=== PATIENT | female | born 1990 | race Hispanic/Latino ===

== ENCOUNTER 2024-07-14 06:45 | Day surgery (SDC) | payer SELFPAY ==
[2024-07-13 11:21] VITALS: BMI 25.3
[2024-07-14] MEDS ORDERED: PROPOFOL 20 ML ONE (09:33)
[2024-07-14 09:52] LABS: #Basophils 0.13 10x3/uL (0.0-0.2); %Basophils 2.2 % (0.0-1.0); %Eosinophils 6.5 % (0.0-10.0); %Lymphocytes 32.9 % (21.0-51.0); %Neutrophils 52.2 % (42.0-75.0); Hematocrit 34.7 % (36.0-47.0); Hemoglobin 10.7 g/dL (12.0-16.0); Mean Corpuscular HGB CONC 30.8 g/dL (32.0-36.0); Mean Corpuscular Volume 97.2 fL (78.0-98.0); Mean Platelet Volume 9.3 fL (7.4-10.4); Platelet Count 329 10x3/uL (130-400); RBC Distribution Width 16.3 % (11.5-14.5); Red Blood Cell (RBC) Count 3.57 mill/uL (4.20-5.40)
[2024-07-14 10:05] LABS: BHCG - Serum Negative (NEGATIVE); Pregs Control Background? CLEAR/WHITE (CLR/WHITE); Pregs Control Bar Appear? YES (CONTROL BAR)
[2024-07-14 10:06] LABS: Anion Gap 15 mmol/L (10-20); BUN (Urea Nitrogen) 29 mg/dL (7.0-18.7); Calc. Creatinine Clearance 45 mL/min (70-130); Calcium 10.4 mg/dL (7.8-10.44); Carbon Dioxide 18 mmol/L (22-29); Chloride 114 mmol/L (98-107); Estimated GFR 36; Glucose 87 mg/dL (70-105); INR-International Normal Ratio 1.1; Potassium 4.7 mmol/L (3.5-5.1); Prothrombin Time 13.8 sec (12.0-14.7); Sodium 142 mmol/L (136-145)
[2024-07-14 10:07] LABS: PTT 36.9 sec (22.9-36.1)
[2024-07-14] MEDS ORDERED: Iopamidol 30 ML ONE (10:29)
[2024-07-14] MEDS ORDERED: Meropenem 2 GM in Sodium Chloride 0.9% 100 ML IVPB SCH (10:30)
[2024-07-14] MEDS ORDERED: fentaNYL PF 100 MCG/2 ML SYRINGE ONE (10:31)
[2024-07-14] MEDS ORDERED: Midazolam HCl 2 mg/2 ml Vial ONE (10:32)
[2024-07-14] MEDS ORDERED: Lidocaine 1% PF 5 ML VIAL ONE (11:02)
[2024-07-14] MEDS ORDERED: Rocuronium Bromide 10 MG/ML (10ML VIAL) ONE (11:02)
[2024-07-14] MEDS ORDERED: Ondansetron PF 4 MG/2 ML Vial ONE (11:07)
[2024-07-14] MEDS ORDERED: Dexamethasone 4 mg/ml Vial ONE (11:07)
[2024-07-14] MEDS ORDERED: SUGAMMADEX SODIUM 200 MG/2 ML VIAL ONE (11:09)
[2024-07-14] MEDS ORDERED: PHENYLEPHRINE-NS 100 MCG/ML 10 ML SYRINGE ONE (11:16)
== END 2024-07-14 15:28 | disposition home or self-care (01) ==
LOC: SDC 06:45
PROVIDERS: ATTEND Urology
PROC: 0TC78ZZ Extirpation of Matter from Left Ureter, Via Natural or Artificial Opening Endoscopic (ICD-10-PCS; principal; 2024-07-14)
PROC: 0T778DZ Dilation of Left Ureter with Intraluminal Device, Via Natural or Artificial Opening Endoscopic (ICD-10-PCS; principal; 2024-07-14)
DX: N20.2 Calculus of kidney with calculus of ureter (principal); Z91.018 Allergy to other foods; Z91.012 Allergy to eggs
CPT/HCPCS: 71045; 74018; 74420; 80048; 82365; 84703; 85025; 85610; 85730; 88300; C1747; C1769; C2617; J1100; J2183; J2250; J2405; J2704; Q9967

== ENCOUNTER 2024-07-26 09:30 | Outpatient (CLI) | payer OTHER | END 2024-07-26 09:31 | disposition home or self-care (01) | LOC: RAD 09:30 | PROVIDERS: ATTEND Urology | DX: N20.2 Calculus of kidney with calculus of ureter (principal); Z96.0 Presence of urogenital implants | CPT/HCPCS: 74018 ==

== ENCOUNTER 2024-07-28 14:55 | Outpatient (CLI) | payer OTHER ==
[2024-07-28 17:07] LABS: %Basophils 1.3 % (0.0-1.0); %Eosinophils 8.6 % (0.0-10.0); %Lymphocytes 30.3 % (21.0-51.0); %Neutrophils 53.4 % (42.0-75.0); Hematocrit 32.4 % (36.0-47.0); Hemoglobin 10.1 g/dL (12.0-16.0); Mean Corpuscular HGB CONC 31.2 g/dL (32.0-36.0); Mean Corpuscular Hemoglobin 30.5 pg (27.0-31.0); Mean Corpuscular Volume 97.9 fL (78.0-98.0); Mean Platelet Volume 9.7 fL (7.4-10.4); Platelet Count 303 10x3/uL (130-400); RBC Distribution Width 15.7 % (11.5-14.5); Red Blood Cell (RBC) Count 3.31 mill/uL (4.20-5.40)
[2024-07-28 17:15] LABS: BHCG - Serum Negative (NEGATIVE); Pregs Control Background? CLEAR/WHITE (CLR/WHITE); Pregs Control Bar Appear? YES (CONTROL BAR)
[2024-07-28 17:16] LABS: Bilirubin Negative (Negative); Blood, Urine 1+ (Negative); Clarity Clear (Clear); Glucose, Urine (Dipstick) Normal (Negative); Ketone, Urine Negative (Negative); Leukocyte 500 Leu/uL (Negative); Nitrite Negative (Negative); Protein, Urine (Dipstick) 30 mg/dL (Neg-Trace); Specific Gravity, Urine 1.003 (1.002-1.036); Squamous Epithelial None Seen HPF (0-3); Urobilinogen Normal mg/dL (Less than 2); WBC/HPF Greater than 50 HPF (0-3); pH, Urine 6.5 (5.0-9.0)
[2024-07-28 17:17] LABS: Bacteria/HPF 1+ HPF (None Seen)
[2024-07-28 17:22] LABS: Anion Gap 10 mmol/L (10-20); BUN (Urea Nitrogen) 34 mg/dL (7.0-18.7); Calc. Creatinine Clearance 0 mL/min (70-130); Calcium 9.1 mg/dL (7.8-10.44); Carbon Dioxide 25 mmol/L (22-29); Chloride 109 mmol/L (98-107); Estimated GFR 39; Glucose 86 mg/dL (70-105); PTT 35.3 sec (22.9-36.1); Potassium 4.1 mmol/L (3.5-5.1); Prothrombin Time 13.5 sec (12.0-14.7); Sodium 140 mmol/L (136-145)
== END 2024-07-28 14:56 | disposition home or self-care (01) ==
LOC: LABBT 14:55
PROVIDERS: ATTEND Urology
DX: Z01.818 Encounter for other preprocedural examination (principal); N13.2 Hydronephrosis with renal and ureteral calculous obstruction; N18.9 Chronic kidney disease, unspecified
CPT/HCPCS: 80048; 81001; 84703; 85025; 85610; 85730; 87086; 93005; 93010

== ENCOUNTER 2024-08-11 07:51 | Day surgery (SDC) | payer SELFPAY ==
[2024-07-28 16:05] VITALS: BMI 11.7
[2024-08-11] MEDS ORDERED: fentaNYL PF 100 MCG/2 ML SYRINGE ONE (09:04)
[2024-08-11] MEDS ORDERED: Rocuronium Bromide 10 MG/ML (10ML VIAL) ONE (09:04)
[2024-08-11] MEDS ORDERED: PROPOFOL 20 ML ONE (09:04)
[2024-08-11] MEDS ORDERED: Midazolam HCl 2 mg/2 ml Vial ONE (09:08)
[2024-08-11] MEDS ORDERED: Meropenem 1 GM in Sodium Chloride 0.9% 100 ML IVPB SCH (09:15)
[2024-08-11] MEDS ORDERED: Dexamethasone 20 MG/5 ML VIAL ONE (09:36)
[2024-08-11] MEDS ORDERED: Lidocaine 1% PF 5 ML VIAL ONE (09:36)
[2024-08-11] MEDS ORDERED: Ondansetron PF 4 MG/2 ML Vial ONE (09:36)
[2024-08-11] MEDS ORDERED: Ketamine In 0.9 % NaCl 50 MG/5 ML SYRINGE ONE (09:44)
[2024-08-11] MEDS ORDERED: SUGAMMADEX SODIUM 200 MG/2 ML VIAL ONE (11:16)
[2024-08-11] MEDS ORDERED: Iopamidol 15 ML ONE (11:36)
[2024-08-11] MEDS ORDERED: Phenazopyridine HCl 100 MG TAB ONE (11:53)
[2024-08-11] MEDS ORDERED: Oxybutynin 5 MG TAB ONE (11:53)
[2024-08-11] MEDS ORDERED: fentaNYL 50 mcg/mL 1 mL Vial ONE (12:08)
== END 2024-08-11 14:04 | disposition home or self-care (01) ==
LOC: SDC 07:51
PROVIDERS: ATTEND Urology
DX: N20.2 Calculus of kidney with calculus of ureter (principal); I12.9 Hypertensive chronic kidney disease with stage 1 through stage 4 chronic kidney disease, or unspecified chronic kidney disease; N18.9 Chronic kidney disease, unspecified; N13.39 Other hydronephrosis; Z87.442 Personal history of urinary calculi; Z91.012 Allergy to eggs; Z91.018 Allergy to other foods; Z98.890 Other specified postprocedural states; Z79.2 Long term (current) use of antibiotics; Z79.899 Other long term (current) drug therapy
CPT/HCPCS: 74018; 74420; C1747; C1769; C2617; J1100; J2185; J2250; J2405; J2704; J3010; J3490; Q9967

== ENCOUNTER 2024-08-24 14:29 | Outpatient (CLI) | payer OTHER | END 2024-08-24 14:30 | disposition home or self-care (01) | LOC: BICCT 14:29 | PROVIDERS: ATTEND Urology | DX: N13.39 Other hydronephrosis (principal); N20.0 Calculus of kidney; N32.89 Other specified disorders of bladder; Z98.890 Other specified postprocedural states | CPT/HCPCS: 74176 ==

== ENCOUNTER 2024-08-30 13:35 | Outpatient (CLI) | payer OTHER, MEDICAID ==
[2024-08-30 15:06] LABS: #Basophils 0.08 10x3/uL (0.0-0.2); %Basophils 1.2 % (0.0-1.0); %Monocytes 5.5 % (0.0-10.0); Hematocrit 34.4 % (36.0-47.0); Mean Corpuscular Hemoglobin 30.9 pg (27.0-31.0); Mean Corpuscular Volume 96.6 fL (78.0-98.0); Platelet Count 336 10x3/uL (130-400); RBC Distribution Width 15.5 % (11.5-14.5); Red Blood Cell (RBC) Count 3.56 mill/uL (4.20-5.40)
[2024-08-30 15:21] LABS: PTT 29.6 sec (22.9-36.1); Prothrombin Time 13.4 sec (12.0-14.7)
[2024-08-30 15:27] LABS: BHCG - Serum Negative (NEGATIVE); Pregs Control Background? CLEAR/WHITE (CLR/WHITE); Pregs Control Bar Appear? YES (CONTROL BAR)
[2024-08-30 15:33] LABS: Anion Gap 12 mmol/L (10-20); BUN (Urea Nitrogen) 30 mg/dL (7.0-18.7); Calc. Creatinine Clearance 0 mL/min (70-130); Calcium 9.4 mg/dL (7.8-10.44); Carbon Dioxide 24 mmol/L (22-29); Chloride 106 mmol/L (98-107); Estimated GFR 31; Glucose 84 mg/dL (70-105); Potassium 4.1 mmol/L (3.5-5.1); Sodium 138 mmol/L (136-145)
[2024-08-30 16:47] LABS: Bacteria/HPF 2+ HPF (None Seen); Bilirubin Negative (Negative); Blood, Urine 2+ (Negative); Clarity Clear (Clear); Glucose, Urine (Dipstick) Normal (Negative); Ketone, Urine Negative (Negative); Leukocyte 500 Leu/uL (Negative); Nitrite Negative (Negative); Protein, Urine (Dipstick) 10 mg/dL (Neg-Trace); RBC/HPF 21-50 HPF (0-3); Squamous Epithelial 0-3 HPF (0-3); Urobilinogen Normal mg/dL (Less than 2); WBC/HPF 21-50 HPF (0-3); Yeast-Budding Rare HPF (None Seen); Yeast-Hyphae Rare HPF (None Seen)
[2024-08-30 16:53] LABS: Specific Gravity, Urine 1.004 (1.002-1.036)
== END 2024-08-30 13:36 | disposition home or self-care (01) ==
LOC: LABBT 13:35
PROVIDERS: ATTEND Urology
DX: Z01.812 Encounter for preprocedural laboratory examination (principal); N20.2 Calculus of kidney with calculus of ureter; N13.39 Other hydronephrosis; N18.9 Chronic kidney disease, unspecified
CPT/HCPCS: 80048; 81001; 84703; 85025; 85610; 85730; 87077; 87086; 87186

== ENCOUNTER 2024-09-13 07:03 | Day surgery (SDC) | payer OTHER ==
[2024-08-30 13:55] VITALS: BMI 12.2
[2024-09-13] MEDS ORDERED: cefTRIAXone (ROCEPHIN) 2 GM VIAL ONE (09:08)
[2024-09-13] MEDS ORDERED: Sodium Chloride 0.9% 100 ML ONE (09:08)
[2024-09-13] MEDS ORDERED: Iopamidol 15 ML ONE (10:15)
[2024-09-13] MEDS ORDERED: PROPOFOL 20 ML ONE (10:20)
[2024-09-13] MEDS ORDERED: Lidocaine 2% PF 5 ML VIAL ONE (10:20)
[2024-09-13] MEDS ORDERED: fentaNYL PF 100 MCG/2 ML SYRINGE ONE (10:24)
[2024-09-13] MEDS ORDERED: Dexamethasone 4 mg/ml Vial ONE (10:49)
[2024-09-13] MEDS ORDERED: Ondansetron PF 4 MG/2 ML Vial ONE (10:49)
[2024-09-13] MEDS ORDERED: ePHEDrine Sulfate 50 MG/10 ML VIAL ONE (10:55)
[2024-09-13] MEDS ORDERED: Calcium Chloride 1 GM/10 ML Abboject SYRINGE ONE (11:25)
[2024-09-13] MEDS ORDERED: PHENYLEPHRINE-NS 100 MCG/ML 10 ML SYRINGE ONE (11:26)
[2024-09-13] MEDS ORDERED: Phenazopyridine HCl 100 MG TAB ONE (12:20)
[2024-09-13] MEDS ORDERED: Oxybutynin 5 MG TAB ONE (12:20)
[2024-09-13] MEDS ORDERED: fentaNYL 50 mcg/mL 1 mL Vial ONE (12:27)
== END 2024-09-13 15:03 | disposition home or self-care (01) ==
LOC: SDC 07:03
PROVIDERS: ATTEND Urology
PROC: 0TF78ZZ Fragmentation in Left Ureter, Via Natural or Artificial Opening Endoscopic (ICD-10-PCS; principal; 2024-09-13)
PROC: 0T778DZ Dilation of Left Ureter with Intraluminal Device, Via Natural or Artificial Opening Endoscopic (ICD-10-PCS; principal; 2024-09-13)
DX: N13.2 Hydronephrosis with renal and ureteral calculous obstruction (principal); I12.9 Hypertensive chronic kidney disease with stage 1 through stage 4 chronic kidney disease, or unspecified chronic kidney disease; N18.9 Chronic kidney disease, unspecified; Z79.899 Other long term (current) drug therapy; Z98.890 Other specified postprocedural states
CPT/HCPCS: 74018; 74420; C1747; C1769; C2617; J0696; J1100; J2405; J2704; J3010; Q9967

== ENCOUNTER 2024-09-30 07:34 | Outpatient (CLI) | payer OTHER | END 2024-09-30 07:35 | disposition home or self-care (01) | LOC: RAD 07:34 | PROVIDERS: ATTEND Urology | DX: N20.0 Calculus of kidney (principal); Z96.0 Presence of urogenital implants | CPT/HCPCS: 74018 ==